=== PATIENT | male | born 1990 | race Caucasian/White ===

== ENCOUNTER 2017-12-29 23:11 | Emergency (ER) | payer MEDICAID ==
[2017-12-29 23:41] LABS: PLATELET COUNT 277 10^3/uL (150-400)
[2017-12-29] MEDS ORDERED: LORazepam 1 MG TAB PO ONE (23:42)
--- NOTE | 2017-12-30 00:35 | EDPHY ---
H & P Stated Complaint: M1 Time Seen by Provider: 12/29/17 23:50 HPI/ROS: Chief Complaint: Agitation, M1 hold HPI: 27-year-old male who is currently in the respite program at [facility] Patient was in an argument with staff this evening. There is some question whether the patient made suicidal or homicidal statements. Police were called. Patient was placed on a mental health hold. Patient states that they were in the process of discharging him from [facility] He denies being suicidal or homicidal at this time. He feels that this is a misunderstanding. They did start him on lithium yesterday. He does have pressured speech at this time is mildly agitated even after Ativan. ROS: 10 point Review of Systems is negative except as noted in the HPI. PMH: Substance abuse, anxiety and depression Social History: Positive smoking, history of opioid dependence Family History: non-contributory Physical Exam: Gen: Awake, Alert, No Distress, agitated, pressured speech HEENT: Nose: no rhinorrhea Eyes: PERRLA, EOMI Mouth: Moist mucosa Neck: Supple, no JVD Chest: nontender, lungs clear to auscultation Heart: S1, S2 normal, no murmur Abd: Soft, non-tender, no guarding Back: no CVA tenderness, no midline tenderness Ext: no edema, non-tender Skin: no rash Neuro: CN II-XII intact, Sensation grossly intact, Strength 5/5 in bilateral upper and lower extremities - Personal History Current Tetanus/Diphtheria Vaccine: Unsure - Medical/Surgical History Hx Asthma: No Hx Chronic Respiratory Disease: No Hx Diabetes: No Hx Cardiac Disease: No Hx Renal Disease: No Hx Cirrhosis: No Hx Alcoholism: No Hx HIV/AIDS: No Hx Splenectomy or Spleen Trauma: No Other PMH: PTSD, Bipolar, TBI, borderline persolality disorder - Social History Smoking Status: Unknown if ever smoked Constitutional: Initial Vital Signs Temperature (C) 36.6 C 12/29/17 23:30 Heart Rate 83 12/29/17 23:30 Respiratory Rate 18 12/29/17 23:30 Blood Pressure 120/71 12/29/17 23:30 O2 Sat (%) 95 12/29/17 23:30 O2 Delivery Mode Room Air Allergies/Adverse Reactions: hydrocodone Allergy (Verified 12/29/17 23:32) Sulfa (Sulfonamide Antibiotics) Allergy (Verified 12/29/17 23:32) tramadol Allergy (Verified 12/29/17 23:32) Home Medications: Medication Instructions Recorded [place] Carbonate 12/29/17 METHADONE HCL 12/29/17 Medical Decision Making ED Course/Re-evaluation: Patient is medically cleared for mental health evaluation. Patient has been seen by the mental health grapple crew leader. She does not feel he requires admission at this time and I agree. She will be in contact with his care team. He already has services in place for his methadone. Will discharge with follow-up with his care team at [facility]. I vacated the M1 hold. - Data Points Laboratory Results: Laboratory Results 12/29/17 23:28 12/29/17 23:28 12/29/17 12/29/17 12/29/17 23:48 23:28 23:28 WBC 10.94 10^3/uL H 10^3/uL (3.80-9.50) RBC 4.76 10^6/uL 10^6/uL (4.40-6.38) Hgb 14.9 g/dL g/dL (13.7-17.5) Hct 43.1 % % (40.0-51.0) MCV 90.5 fL fL (81.5-99.8) MCH 31.3 pg pg (27.9-34.1) MCHC 34.6 g/dL g/dL (32.4-36.7) RDW 12.5 % % (11.5-15.2) Plt Count 277 10^3/uL 10^3/uL (150-400) MPV 9.3 fL fL (8.7-11.7) Neut % (Auto) 58.0 % % (39.3-74.2) Lymph % (Auto) 30.2 % % (15.0-45.0) [place] % (Auto) 8.3 % % (4.5-13.0) Eos % (Auto) 2.6 % % (0.6-7.6) Baso % (Auto) 0.5 % % (0.3-1.7) Nucleat RBC Rel Count 0.0 % % (0.0-0.2) Absolute Neuts (auto) 6.36 10^3/uL 10^3/uL (1.70-6.50) Absolute Lymphs (auto) 3.30 10^3/uL H 10^3/uL (1.00-3.00) Absolute Monos (auto) 0.91 10^3/uL H 10^3/uL (0.30-0.80) Absolute Eos (auto) 0.28 10^3/uL 10^3/uL (0.03-0.40) Absolute Basos (auto) 0.05 10^3/uL 10^3/uL (0.02-0.10) Absolute Nucleated RBC 0.00 10^3/uL 10^3/uL (0-0.01) Immature Gran % 0.4 % % (0.0-1.1) Immature Gran # 0.04 10^3/uL 10^3/uL (0.00-0.10) Sodium 141 mEq/L mEq/L (135-145) Potassium 4.9 mEq/L mEq/L (3.5-5.2) Chloride 99 mEq/L mEq/L (97-110) Carbon Dioxide 30 mEq/l mEq/l (22-31) Anion Gap 12 mEq/L mEq/L (8-16) BUN 14 mg/dL mg/dL (7-23) Creatinine 0.8 mg/dL mg/dL (0.7-1.3) Estimated GFR > 60 Glucose 78 mg/dL mg/dL (70-100) Calcium 9.0 mg/dL mg/dL (8.5-10.4) Urine Opiates Screen NEGATIVE (NEGATIVE) Urine Barbiturates NEGATIVE (NEGATIVE) Ur Phencyclidine Scrn NEGATIVE (NEGATIVE) Ur Amphetamine Screen NEGATIVE (NEGATIVE) U Benzodiazepines Scrn NEGATIVE (NEGATIVE) [place] < 0.2 mEq/L L mEq/L (0.6-1.2) Urine Cocaine Screen NEGATIVE (NEGATIVE) U Marijuana (THC) Screen NEGATIVE (NEGATIVE) Ethyl Alcohol < 10 mg/dL mg/dL (0-10) Medications Given: Discontinued Medications Lorazepam (Ativan) 1 mg PO EDNOW ONE Stop: 12/29/17 23:43 Last Admin: 12/29/17 23:48 Dose: 1 mg Departure - Departure Disposition: Home, Routine, Self-Care Clinical Impression: Depression, Polysubstance abuse Condition: Good Instructions: Depression (DC) Additional Instructions: Follow up with your care team in 2-3 days for further management of your depression. Follow-up in the clinic today to initiate your opioid treatment. Return to the emergency department for increasing depression, suicidal ideation , thoughts of harming others, worsening hopelessness, or any other concerns. Referrals: [facility],. [Clinic] - As per Instructions
[2017-12-30 08:07] VITALS: BP 122/69
== END 2017-12-30 08:05 | disposition home or self-care (01) ==
LOC: EDUNIT#
DX: F32.9 Major depressive disorder, single episode, unspecified (principal); F19.10 Other psychoactive substance abuse, uncomplicated; F17.200 Nicotine dependence, unspecified, uncomplicated
CPT/HCPCS: 80305; G0480

== ENCOUNTER 2018-01-05 21:22 | Emergency (ER) | payer MEDICAID ==
[2018-01-05 21:30] VITALS: BP 119/64
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
== END 2018-01-05 22:13 | disposition home or self-care (01) ==
DX: L08.9 Local infection of the skin and subcutaneous tissue, unspecified (principal); F17.200 Nicotine dependence, unspecified, uncomplicated

== ENCOUNTER 2018-01-08 00:43 | Emergency (ER) | payer MEDICAID ==
--- NOTE | 2018-01-08 00:57 | CPEKG ---
Heart Rate: 73 RR Interval: 822 P-R Interval: 148 QRSD Interval: 94 QT Interval: 384 QTC Interval: 424 P [place]: 61 QRS [place]: 77 T Wave [place]: 53 EKG Severity - NORMAL ECG - EKG Impression: SINUS RHYTHM Electronically Signed By: Mel Wen 08-Jan-2018 07:35:24
[2018-01-08 01:06] LABS: PLATELET COUNT 290 10^3/uL (150-400)
[2018-01-08] MEDS ORDERED: KETOROLAC 15 MG/1 ML SDV IVP ONE (01:55)
--- NOTE | 2018-01-08 01:55 | EDPHY ---
H & P Stated Complaint: syncopal? at [facility] Time Seen by Provider: 01/08/18 00:46 HPI/ROS: HPI The patient presents brought in by ambulance for an episode of ALOC. The patient took a nap in the early evening. He got up from bed though felt groggy. She walked to the toilet and sat down to urinate. He began to feel lightheaded and woozy. He then awoke slumped over on the toilet. He tried to stand up, however still felt dizzy and fell against a wall, hitting the right side of his head on it. He now is complaining of a mild headache and diffuse body pain after the fall. He says he has been referred to a neurologist for seizures. He did not have any tongue biting or urinary incontinence. He reports intermittent blurry vision though no double vision, he does not have any nausea or vomiting, weakness of his arms or legs. He was started on Suboxone 3 days ago. He is residing at [facility]. He was seen in the emergency department 2 days ago and started on doxycycline for a cellulitis of his right hand with associated burn. REVIEW OF SYSTEMS Constitutional: No fever, no chills. Eyes: No discharge. ENT: No sore throat. Cardiovascular: No chest pain, no palpitations. Respiratory: No cough, no shortness of breath. Gastrointestinal: No abdominal pain, no vomiting. Genitourinary: No hematuria. Musculoskeletal: No back pain. Skin: No rashes. Neurological: No headache. PMHx: History of bipolar disorder Soc Hx: Currently residing at [facility], history of opiate and methamphetamine abuse PHYSICAL General Appearance: Alert, no distress Eyes: Pupils equal and round no pallor or injection ENT, Mouth: Mucous membranes moist Respiratory: There are no retractions, lungs are clear to auscultation Cardiovascular: Regular rate and rhythm Gastrointestinal: Abdomen is soft and non-tender, no masses, bowel sounds normal Neurological: A&O x3, cranial nerves 2-12 intact, 5/5 strength in upper and lower extremities which is symmetric Skin: Warm and dry, no rashes Musculoskeletal: Neck is supple, no midline cervical spinal tenderness Extremities: symmetrical, full range of motion Psychiatric: Patient is oriented X 3, there is no agitation Source: Patient, EMS, Old records Exam Limitations: No limitations - Personal History Current Tetanus/Diphtheria Vaccine: Yes Current Tetanus Diphtheria and Acellular Pertussis (TDAP): Yes - Medical/Surgical History Hx Asthma: No Hx Chronic Respiratory Disease: No Hx Diabetes: No Hx Cardiac Disease: No Hx Renal Disease: No Hx Cirrhosis: No Hx Alcoholism: No Hx HIV/AIDS: No Hx Splenectomy or Spleen Trauma: No Other PMH: PTSD, Bipolar, TBI, borderline persolality disorder, JUST STARTED SUBOXONE 01/05/18 - Social History Smoking Status: Current every day smoker Constitutional: Initial Vital Signs Temperature (C) 36.5 C 01/08/18 00:50 Heart Rate 79 01/08/18 00:50 Respiratory Rate 18 01/08/18 00:50 Blood Pressure 109/69 01/08/18 00:50 O2 Sat (%) 92 01/08/18 00:50 O2 Delivery Mode Room Air Allergies/Adverse Reactions: hydrocodone Allergy (Verified 01/05/18 21:30) Sulfa (Sulfonamide Antibiotics) Allergy (Verified 01/05/18 21:30) tramadol Allergy (Verified 01/05/18 21:30) Home Medications: Medication Instructions Recorded [place] Carbonate 12/29/17 Buprenorphine HCl/Naloxone HCl 1 each SL DAILY 01/05/18 [Suboxone 8 mg-2 mg Sl Film] LYRICA 01/08/18 ZYRTEC 01/08/18 traZODone 01/08/18 Medical Decision Making - Diagnostics EKG Interpretation: EKG: Complete interpretation has been separately recorded in the [facility] archive. Summary impression: Normal sinus rhythm Differential Diagnosis: This is a 27-year-old male who presents with an episode of ALOC. By history, sounds to be mixed duration syncope given that he had preceding lightheadedness while urinating. Other possibilities include seizure, though no clear postictal phase, no tongue biting or urinary incontinence. Would also consider an arrhythmia. He is newly on Suboxone and doxycycline, though I do not believe these are contributing to his current presentation. In the emergency department, the patient was monitored for several hours on the secured entrance monitor with no events. He had no further episodes. Basic labs were checked and were unremarkable. [place] level is undetectable. When I asked him about this, he says that at [facility] he is taking this. We will print him out his labs for him to take to them. He was given Toradol for his body pain. He will be discharged back to [facility] given his unremarkable evaluation. He is happy with this plan. He will follow up with Neurology as already scheduled. As I do not suspect this was a seizure, I do not think he needs to be on any antiepileptic medications. - Data Points Laboratory Results: Laboratory Results 01/08/18 00:45 01/08/18 00:45 01/08/18 01/08/18 00:45 00:45 WBC 9.30 10^3/uL 10^3/uL (3.80-9.50) RBC 4.96 10^6/uL 10^6/uL (4.40-6.38) Hgb 15.4 g/dL g/dL (13.7-17.5) Hct 44.5 % % (40.0-51.0) MCV 89.7 fL fL (81.5-99.8) MCH 31.0 pg pg (27.9-34.1) MCHC 34.6 g/dL g/dL (32.4-36.7) RDW 12.2 % % (11.5-15.2) Plt Count 290 10^3/uL 10^3/uL (150-400) MPV 9.5 fL fL (8.7-11.7) Neut % (Auto) 55.6 % % (39.3-74.2) Lymph % (Auto) 31.6 % % (15.0-45.0) [place] % (Auto) 9.2 % % (4.5-13.0) Eos % (Auto) 2.7 % % (0.6-7.6) Baso % (Auto) 0.4 % % (0.3-1.7) Nucleat RBC Rel Count 0.0 % % (0.0-0.2) Absolute Neuts (auto) 5.16 10^3/uL 10^3/uL (1.70-6.50) Absolute Lymphs (auto) 2.94 10^3/uL 10^3/uL (1.00-3.00) Absolute Monos (auto) 0.86 10^3/uL H 10^3/uL (0.30-0.80) Absolute Eos (auto) 0.25 10^3/uL 10^3/uL (0.03-0.40) Absolute Basos (auto) 0.04 10^3/uL 10^3/uL (0.02-0.10) Absolute Nucleated RBC 0.00 10^3/uL 10^3/uL (0-0.01) Immature Gran % 0.5 % % (0.0-1.1) Immature Gran # 0.05 10^3/uL 10^3/uL (0.00-0.10) Sodium 143 mEq/L mEq/L (135-145) Potassium 4.0 mEq/L mEq/L (3.3-5.0) Chloride 102 mEq/L mEq/L (97-110) Carbon Dioxide 30 mEq/l mEq/l (22-31) Anion Gap 11 mEq/L mEq/L (8-16) BUN 19 mg/dL mg/dL (7-23) Creatinine 0.8 mg/dL mg/dL (0.7-1.3) Estimated GFR > 60 Glucose 88 mg/dL mg/dL (70-100) Calcium 8.9 mg/dL mg/dL (8.5-10.4) [place] < 0.2 mEq/L L mEq/L (0.6-1.2) Medications Given: Discontinued Medications Ketorolac Tromethamine (Toradol) 15 mg IVP EDNOW ONE Stop: 01/08/18 01:56 Last Admin: 01/08/18 02:08 Dose: 15 mg Departure - Departure Disposition: Home, Routine, Self-Care Clinical Impression: Syncope Qualifiers: Syncope type: unspecified Qualified Code(s): R55 - Syncope and collapse Condition: Good Instructions: Syncope (ED) Additional Instructions: Please follow-up with your neurology appointment as planned. You should return to the emergency department if your worse in any way. Your lithium level was low today and you may need to increase her dose. Please tell Korey wilson about this. Referrals: [facility],. [Clinic] - As per Instructions
[2018-01-08 03:06] VITALS: BP 101/63
== END 2018-01-08 03:04 | disposition home or self-care (01) ==
LOC: EDUNIT#
DX: R55 Syncope and collapse (principal); F17.200 Nicotine dependence, unspecified, uncomplicated
CPT/HCPCS: 96374; J1885